=== PATIENT | female | born 1995 | race Two or more races ===

== ENCOUNTER 2024-01-22 20:51 | Emergency (ER) | payer MEDICAID ==
[~2024-01-22] VITALS: Ht 154.9 cm; Wt 79.5 kg
[2024-01-22 20:56] VITALS: TEMP 98.4
[2024-01-22 22:18] LABS: BASOPHILS # (AUTO) 0.1 X10'3 (0-0.2); BASOPHILS % (AUTO) 0.7 % (0-1); EOSINOPHILS # (AUTO) 0.3 X10'3 (0-0.9); EOSINOPHILS % (AUTO) 2.6 % (0-6); HEMATOCRIT 34.7 % (35.0-45.0); LYMPHOCYTES # (AUTO) 2.3 X10'3 (1.1-4.8); LYMPHOCYTES % (AUTO) 23.2 % (21-51); MEAN CORPUSCULAR HEMOGLOBIN 25.1 PG (27.0-31.0); MEAN CORPUSCULAR HGB CONC 31.7 g/dL (33.0-36.5); MEAN CORPUSCULAR VOLUME 79.2 FL (78-98); MEAN PLATELET VOLUME 9.2 FL (7.4-10.4); MONOCYTES # (AUTO) 0.9 X10'3 (0-0.9); NEUTROPHILS # (AUTO) 6.5 X10'3 (1.8-7.7); NEUTROPHILS % (AUTO) 64.5 % (42-75); PLATELET COUNT 291 X10'3 (140-440); RED BLOOD COUNT 4.38 X10'6 (4.20-5.60); RED CELL DISTRIBUTION WIDTH 15.5 % (11.5-14.5)
[2024-01-22 22:29] LABS: ALANINE AMINOTRANSFERASE 21 U/L (12-78); ALBUMIN 3.7 G/DL (3.4-5.0); ALBUMIN/GLOBULIN RATIO 0.9 (1.1-1.5); ALKALINE PHOSPHATASE 69 IU/L (46-116); ANION GAP 8 (8-16); ASPARTATE AMINO TRANSFERASE 11 U/L (10-37); BILIRUBIN,TOTAL 0.2 MG/DL (0.1-1.0); BLOOD UREA NITROGEN 11 MG/DL (7-18); BUN/CREATININE RATIO 15.5 (10.0-20.0); CALCIUM 8.9 MG/DL (8.5-10.1); CHLORIDE 108 MMOL/L (99-107); CREATININE 0.71 MG/DL (0.40-0.90); GLUCOSE 86 MG/DL (70-104); LIPASE 53 U/L (16-77); POTASSIUM 3.7 MMOL/L (3.5-5.1); SODIUM 143 MMOL/L (135-145); TOTAL CARBON DIOXIDE 26.9 MMOL/L (24-32); TOTAL PROTEIN 7.7 G/DL (6.4-8.2); eCRCL 87 ML/MIN; eGFR > 90 ML/MIN
[2024-01-23] MEDS: LIDOcaine 2% Viscous 15ml cup MM ONE (00:48)
[2024-01-23] MEDS: mag hydrox/Alum hydrox/simeth 30ml oral suspension PO ONE (00:48)
[2024-01-23] MEDS ORDERED: FAMO-129 PO (01:27)
[2024-01-23] MEDS ORDERED: ONDA-245 PO (01:27)
[2024-01-23] MEDS: pantoprazole 40mg Tablet.DR PO ONE (01:59)
[2024-01-23] MEDS: famotidine 20mg tablet PO ONE (01:59)
[2024-01-23 02:00] VITALS: BP 119/84; PULSE 62; RESP 14; O2SAT 100
== END 2024-01-23 02:14 | disposition home or self-care (01) ==
LOC: ER 20:51
DX: R10.13 Epigastric pain (principal); R11.10 Vomiting, unspecified
CPT/HCPCS: 36415; 80053; 83690; 85025; 99284

== ENCOUNTER 2024-03-27 09:33 | Emergency (ER) | payer MEDICAID ==
[~2024-03-27] VITALS: Ht 154.9 cm; Wt 80.1 kg
[~2024-03-27 09:33] MED LIST: FAMO-129 PO; ONDA-245 PO
[2024-03-27] MEDS ORDERED: ketorolac trometh 15mg/ml vial 15 MG/ML ML IM ONE (10:55)
[2024-03-27] MEDS: HYDROcodone/acetaminophen 10/325mg tab PO ONE (11:16)
[2024-03-27] MEDS: ketorolac trometh 30MG/ML vial 30 MG/ML VIAL IM ONE (11:17)
[2024-03-27] MEDS ORDERED: NAPR-56 PO (11:29)
[2024-03-27] MEDS ORDERED: LIDO700A32 TOP (11:29)
[2024-03-27] MEDS ORDERED: CYCL-394 PO (11:29)
[2024-03-27 11:41] VITALS: BP 115/61; PULSE 58; RESP 17; TEMP 98; O2SAT 98
== END 2024-03-27 11:42 | disposition home or self-care (01) ==
LOC: ER 09:33
DX: S39.012A Strain of muscle, fascia and tendon of lower back, initial encounter (principal); X58.XXXA Exposure to other specified factors, initial encounter; Y93.89 Activity, other specified; Y92.89 Other specified places as the place of occurrence of the external cause; Y99.8 Other external cause status
CPT/HCPCS: 96372; 99283; J1885

== ENCOUNTER 2024-11-02 17:04 | Emergency (ER) | payer MEDICAID ==
[~2024-11-02] VITALS: Ht 154.9 cm; Wt 83.6 kg
[~2024-11-02 17:04] MED LIST changes: +LIDO700A32 TOP
[2024-11-02 17:14] VITALS: BP 145/99; PULSE 78; O2SAT 98
--- NOTE | 2024-11-02 17:38 | Physician Documentation ---
History of Present Illness ~ Chief Complaint: Back Pain Stated Complaint: LOWER BACK PAIN Time Seen by MD: 19:24 Primary Medical Doctor: [facility] This 29-year-old female presents with three days of right lower back pain, patient reports that she was previously seen for similar at urgent care and treated with Toradol which provided mild relief, patient additionally reports she was prescribed a muscle relaxer which did not help with back pain. Patient reports no dysuria or hematuria. Patient reports no fever, no new numbness, weakness, or paresthesias to extremities, no saddle paresthesias, and no loss of bowel or bladder control. Patient reports no history of tuberculosis, IV drug use, or cancer. Medication Reconciliation Allergies: Coded Allergies: No Known Allergies (Unverified , 11/02/24) Scheduled Famotidine (Pepcid), 1 TAB PO Q12H Ibuprofen (Ibuprofen), 1 TAB PO Q8H Lidocaine (Lidoderm), 1 PATCH TOP DAILY Lidocaine (Lidoderm), 1 PATCH TOP DAILY Ondansetron 8mg ODT (Ondansetron Odt), 1 TAB PO Q6H Scheduled PRN Cyclobenzaprine* (Cyclobenzaprine*), 1 TAB PO TID PRN for muscle spasms Past Medical History Past Medical History: Chronic Back Pain Review of Systems ROS Low back pain as stated above in the HPI, otherwise all systems are reviewed and negative. Physical Exam Physical Exam Vital Signs: Temperature: 97.9, Source: Temporal, Heart Rate: 78, Respiratory Rate: 18, BP: 145/99, Pulse Oximetry: 98, Weight: 83.600 Physical Exam VITALS: Reviewed and as above. GENERAL: Alert, nontoxic appearing, no apparent distress. RESPIRATORY: No increased work of breathing, no respiratory distress, speaking in full clear sentences BACK: No central tenderness to palpation, no CVA tenderness, right lower lumbar area tender to palpation Progress Results/Orders Results/Orders Completed Orders - SCOOBY KEITA Ketorolac Trometh 15mg/Ml Vial (Toradol (11/02/24 20:15) Lidocaine 5% Patch (Lidoderm 5% Patch) (11/02/24 20:15) Cyclobenzaprine Tablet (Flexeril Tablet) (11/02/24 20:15) Medications Received in ER Medications (Trade) Dose Ordered Sig/Wendi Route PRN Reason Start Time Stop Time Status Last Admin Dose Admin (Toradol injection) 15 mg ONCE ONCE IM 11/02/24 20:15 11/02/24 20:16 DC 11/02/24 20:40 15 MG (Lidoderm 5% Patch) 1 patch ONCE ONCE TP 11/02/24 20:15 11/02/24 20:16 DC 11/02/24 20:39 1 PATCH (Flexeril tablet) 10 mg ONCE ONCE PO 11/02/24 20:15 11/02/24 20:16 DC 11/02/24 20:38 10 MG Vital Signs 11/02/24 11/02/24 11/02/24 17:14 20:40 21:14 Temp 97.9 97.9 Pulse 78 Resp 18 18 B/P (MAP) 145/99 Pulse Ox 98 Medical Decision Making Findings This otherwise healthy and well-appearing 29-year-old female presented with approximately three days of right lower lumbar back pain similar to previous episodes of low back pain. There was tenderness to palpation to the right lower lumbar back without central spinal tenderness, remainder of physical exam was benign. Patients does not have any high-risk features on history trauma IVDA, cancer, significant weight loss or history of TB, and the patient has a normal neurologic exam without fever, severe or progressive neurologic deficits, new or worsening urinary retention, urinary/stool incontinence or decreased perineal sensation; therefore imaging was not indicated in the ED. I doubt spinal fracture, epidural hematoma, epidural abscess, unstable spinal pathology, emergent renal or aortic pathology, or spinal cord compression. Upon discharge, the patients pain was controlled, and the patient was ambulatory without a risk of falling. Return precautions were discussed including worsening pain, new/worsening weakness/numbness, difficulty urinating, or incontinence. Patient verbalized understanding discharge instructions and return to care precautions Differential Dx:Considerations: Include: Appendicitis, DJD, Musculoskeletal pain, Pyelonephritis, Strain, Urolithiasis, Other (Cauda equina, spinal epidural abscess) Departure Time of Disposition: 20:15 Disposition: 01 HOME / SELF CARE / HOMELESS Impression: Primary Impression: Acute exacerbation of chronic low back pain Condition: Improved Discharge Instructions: Acute Back Pain, Adult, Chronic Back Pain Additional Instructions: Please take the medications as prescribed as needed for pain. Please follow up with your primary care provider in the next few days possible referral to physical therapy or a um specialist. Please return to the emergency department for any new or worsening concerning symptoms including but not limited to new weakness or numbness in your legs, or loss of bowel or bladder control. Do not take the Flexeril (muscle relaxer) with alcohol or opioid containing medications, do not drive or operate machinery while taking this medication. Do not take ibuprofen or naproxen the next 12 hours as the Toradol injection you received we will replace these medications. Referrals: NO PRIMARY CARE PROVIDER (PCP) Prescriptions Cyclobenzaprine* (Cyclobenzaprine*) 10 Mg Tablet 1 TAB PO TID PRN for muscle spasms, #15 TAB Prov: SCOOBY KEITA 11/02/24 Ibuprofen (Ibuprofen) 800 Mg Tablet 1 TAB PO Q8H for pain for 10 Days, #30 TAB 0 Refills Prov: SCOOBY KEITA 11/02/24 Lidocaine (Lidoderm) 5 % Adh..patch 1 PATCH TOP DAILY for 10 Days, #10 PATCH 0 Refills may wear up to 12 hours Prov: SCOOBY KEITA 11/02/24 Education Educated: Patient Educated regarding: diagnosis, treatment, prognosis, need for follow up Signature Scribe Signature: No scribe Attestation: The note accurately reflects work and decisions made by me.SHE Garcia 11/03/24 01:50 SCOOBY KEITA November 02, 2024 17:38
[2024-11-02] MEDS ORDERED: IBUP-1986 PO (20:17)
[2024-11-02] MEDS ORDERED: LIDO700A32 TOP (20:17)
[2024-11-02] MEDS ORDERED: CYCL-1 PO (20:17)
[2024-11-02] MEDS: cyclobenzaprine 10mg tablet PO ONE (20:38)
[2024-11-02] MEDS: LIDOcaine 5% patch TP ONE (20:39)
[2024-11-02 20:40] VITALS: RESP 18
[2024-11-02] MEDS: ketorolac trometh 15mg/ml vial 15 MG/ML ML IM ONE (20:40)
[2024-11-02 21:14] VITALS: TEMP 97.9
== END 2024-11-02 21:15 | disposition home or self-care (01) ==
LOC: ER 17:05
DX: G89.29 Other chronic pain (principal); M54.50 Low back pain, unspecified
CPT/HCPCS: 96372; 99283; J1885